=== PATIENT | female | born 1960 | race Hispanic/Latino ===

== ENCOUNTER 2019-12-30 21:09 | Emergency (ER) | payer OTHER ==
[2019-12-30 22:05] VITALS: BP 141/82
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
== END 2019-12-31 00:30 | disposition left against medical advice (07) ==
LOC: ED 21:09
DX: S00.83XA Contusion of other part of head, initial encounter (principal); Z53.21 Procedure and treatment not carried out due to patient leaving prior to being seen by health care provider; X58.XXXA Exposure to other specified factors, initial encounter; Y93.89 Activity, other specified; Y92.89 Other specified places as the place of occurrence of the external cause; Y99.8 Other external cause status
CPT/HCPCS: 70450; 72125